=== PATIENT | female | born 1955 | race Caucasian/White ===

== ENCOUNTER 2017-07-03 06:58 | Emergency (ER) | payer OTHER ==
[~2017-07-03] VITALS: Ht 165.1 cm; Wt 96.9 kg
[2017-07-03 07:04] VITALS: TEMP 36.8; Ht 165.1 cm; Wt 96.9 kg
[2017-07-03] MEDS ORDERED: SODIUM CHLORIDE 0.9% 1000ML 1,000 ML IV STA (07:04)
[2017-07-03] MEDS ORDERED: HYDROmorphone INJ 1 MG/ML SYR IV STA ×2 (07:04→08:13)
[2017-07-03] MEDS ORDERED: ONDANSETRON INJ 2 MG/ML 2 ML VIAL IV STA (07:04)
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
[2017-07-03 07:28] VITALS: O2SAT 95
[2017-07-03 07:33] LABS: BASO % 0.4 %; BASO ABS # 0.02 K/uL (0-0.2); EOS ABS # 0.05 K/uL (0-0.5); HEMATOCRIT 45.5 % (37-47); HEMOGLOBIN 15.4 g/dL (12.0-16.0); IG# 0.02 K/uL (0.00-0.02); LYMPH % 39.2 %; LYMPH ABS # 2.01 K/uL (1.2-3.4); MEAN CELL VOLUME 87.5 fL (80-100); MEAN CORPUSCULAR HEMOGLOBIN 29.6 pg (25-34); MEAN CORPUSCULAR HGB CONC 33.8 g/dl (32-36); MONO % 6.2 %; MONO ABS # 0.32 K/uL (0.11-0.59); NEUT % 52.8 %; NEUT ABS # 2.71 K/uL (1.4-6.5); PLATELET COUNT 239 K/uL (130-400); RED CELL DISTRIBUTION WIDTH CV 13.3 % (11.5-14.5); RED CELL DISTRIBUTION WIDTH SD 42.6 fL (36.4-46.3); WHITE BLOOD COUNT 5.13 K/uL (4.8-10.8)
[2017-07-03 07:38] LABS: ISTAT CREATININE 1.1 mg/dl (0.6-1.3); ISTAT IONIZED CALCIUM 1.11 mmol/l (1.12-1.32)
[2017-07-03 07:52] LABS: ALBUMIN 3.8 gm/dl (3.4-5.0); CALCIUM 8.6 mg/dl (8.5-10.1); CREATININE 1.08 mg/dl (0.60-1.20); TOTAL PROTEIN 7.6 gm/dl (6.4-8.2)
[2017-07-03] MEDS ORDERED: ATOR10TA82 PO (07:55)
[2017-07-03] MEDS ORDERED: CITA40TA12 PO (07:55)
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
[2017-07-03] MEDS ORDERED: KETOROLAC TROMETHAMINE 30 MG/ML VIAL IV STA (08:15)
[2017-07-03] MEDS ORDERED: OXYC-57 PO (08:18)
[2017-07-03 08:25] VITALS: BP 139/78; PULSE 78; O2SAT 95
== END 2017-07-03 08:42 | disposition home or self-care (01) ==
LOC: EDBD 06:58 → C.EDA 06:58
DX: M54.6 Pain in thoracic spine (principal); Z79.899 Other long term (current) drug therapy; V47.5XXA Car driver injured in collision with fixed or stationary object in traffic accident, initial encounter; Y92.410 Unspecified street and highway as the place of occurrence of the external cause